=== PATIENT | female | born 1970 | race Caucasian/White ===

== ENCOUNTER 2022-06-06 11:36 | Inpatient (IN) | payer OTHER ==
[~2022-06-06] VITALS: Ht 170.2 cm; Wt 64.4 kg
[2022-06-09] MEDS ORDERED: FOSAMAX PLUS D1 EAC1 (16:23)
[2022-06-09] MEDS ORDERED: EZETIMIBE-SIMV1 EAC3 (16:24)
== END 2022-06-10 20:27 | disposition home or self-care (01) | DRG 331 ==
LOC: ER 11:36 → MEDI 20:34 → SEC-K 20:34 → MEDI 23:24
PROVIDERS: Surgery; ADMIT Internal Medicine; ATTEND Internal Medicine
PROC: 0DTJ4ZZ Resection of Appendix, Percutaneous Endoscopic Approach (ICD-10-PCS; 2022-06-07)
PROC: 0WQF4ZZ Repair Abdominal Wall, Percutaneous Endoscopic Approach (ICD-10-PCS; 2022-06-07)
PROC: 0DQF4ZZ Repair Right Large Intestine, Percutaneous Endoscopic Approach (ICD-10-PCS; principal; 2022-06-07 10:00)
DX: K35.80 Unspecified acute appendicitis (principal); K35.32 Acute appendicitis with perforation, localized peritonitis, and gangrene, without abscess; K43.9 Ventral hernia without obstruction or gangrene